=== PATIENT | female | born 1990 | race Caucasian/White ===

== ENCOUNTER 2018-01-22 21:26 | Emergency (ER) | payer SELFPAY ==
[~2018-01-22] VITALS: Ht 167.6 cm; Wt 87.3 kg
[~2018-01-22 21:26] MED LIST: [UNRECOGNIZED DRUG - CODE]
[2018-01-22 21:31] VITALS: BP 159/111
[2018-01-22 23:35] VITALS: BP 159/111
--- NOTE | 2018-01-22 23:35 | NUR ---
PATIENT LEFT WITHOUT BEING SEEN BY DR. RODRIGUES. NO FURTHER CARE PROVIDED FOR PATIENT.
== END 2018-01-22 23:35 | disposition left against medical advice (07) ==
LOC: MED 21:26
DX: H92.02 Otalgia, left ear (principal); Z53.21 Procedure and treatment not carried out due to patient leaving prior to being seen by health care provider